=== PATIENT | female | born 1950 | race Caucasian/White ===

== ENCOUNTER 2024-02-19 20:06 | Emergency (ER) | payer MEDICARE, SELFPAY ==
[2024-02-19 20:10] VITALS: BP 150/83
[2024-02-19 22:23] VITALS: BP 165/77
--- NOTE | 2024-02-19 22:31 | ED.GENMED ---
History of Present Illness
General
Chief Complaint: Allergic Reaction
Source: patient
Time Seen by Provider: 02/19/24 22:10
Travel History
Have you had any contact with someone who has COVID-19?: No
Do you have any symptoms of coronavirus? Fever > 100 degrees, chills, cough, shortness of breath, sore throat, loss of taste or smell, muscle aches, or headache?: No
History of Present Illness
History of Present Illness:
74-year-old female presenting to the emergency department for evaluation after she was stung on the right hand by a bee around 7 PM this evening, has a history of allergy to bees so decided to use her EpiPen. She states that she has felt full body
paresthesias in the past with bee stings but did not feel the sensation today. She denies any shortness of breath or sensation of throat closing. She did take 2 Benadryl but notes that they were from 2 years ago. She notes continued
erythema and some discomfort over the right hand/forearm. No other concerns.
Past History
Past History
ED Past Medical History: Other (Pneumothorax)
ED Past Surgical History: Gynecological
Social History
Tobacco: Former smoker
Alcohol: Daily
Drug: None
Personal:
Living: with family
Review of Systems
Review of Systems
All Other Systems: ROS reviewed and negative except as documented in HPI and ROS
Phy Exam
Physical Exam
Physical Exam:
GENERAL: Alert , in no apparent distress
EYE: conjunctiva clear
Head: Normocephalic atraumatic
NECK: Supple,
ENT: mmm. No evidence for anaphylaxis
LUNGS: no acute respiratory distress
NEUROLOGICAL: Alert and oriented
SKIN: Warm and dry, erythema and edema of the dorsal right hand/forearm
MUSCULOSKELETAL: well perfused.
PSYCH: Normal and appropriate interaction.
Scores
Heart Failure Risk
Heart Failure Risk Score: Not Applicable
Heart Score for Chest Pain Patients
STEMI patient?: Not applicable
Withdrawal Assessment of Alcohol
Withdrawal Assessment Completed?: Not applicable
Course
Vital Signs
Initial and Last Documented VS:
Initial Vital Signs
Temp Pulse Resp BP Pulse Ox
98.1 F 77 20 150/83 99
02/19/24 20:10 02/19/24 20:10 02/19/24 20:10 02/19/24 20:10 02/19/24 20:10
Last Documented Vital Signs
Temp Pulse Resp BP Pulse Ox
98.1 F 65 18 165/77 98
02/19/24 20:10 02/19/24 22:23 02/19/24 22:23 02/19/24 22:23 02/19/24 22:23
MDM/Problems Addressed
Differential Diagnosis Includes:
Inflammatory reaction to bee sting, no current evidence for anaphylactic reaction, mild allergic reaction
MDM/Problems Addressed:
74-year-old female presenting the emergency department for evaluation following bee sting. There does appear to be an inflammatory reaction however no evidence for allergic reaction. Patient is nearly 3-1/2 hours since taking her EpiPen without
showing any evidence for anaphylaxis. I do think it is reasonable to continue management at home with Benadryl as needed. Motrin/ibuprofen or Tylenol for pain as needed. New prescription to be sent to patient's pharmacy for an EpiPen. Patient
stable for discharge home and aware of return precautions.
*Pulse Oximetry
Patient hypoxic: no
*Critical Care Note
Total Time (30-74mins, 75-104mins- exclusive of procedures): Not Applicable
ED Attending Note
-
Portions of this chart may have been created with voice recognition software.� Occasional wrong word or��sound alike� substitutions may have occurred due to the inherent limitations of voice recognition software.
Discharge Plan
Departure
Patient Disposition: Home (Routine Discharge)
Date of Disposition: 02/19/24
Time of Disposition: 22:31
Patient with high blood pressure during this ER visit?: Yes
Discharge Problem:
Bee sting
Instructions: Insect bites and stings
Prescriptions:
New
epinephrine [EpiPen] 0.3 mg/0.3 mL auto-injector
0.3 mg IM ONCE PRN (Reason: anaphylaxis) Qty: 2 0RF
No Action
aspirin 81 MG tablet,chewable
81 mg PO DAILY
Multiple Vitamins
PO DAILY
prednisone 50 MG tablet
50 mg PO DAILY Qty: 5 0RF
epinephrine [EpiPen] 0.3 MG/0.3/SYRINGE auto-injector
0.3 mg IM STAT! PRN (Reason: sob) Qty: 2 0RF
rabies vacc,human diploid (PF) [Imovax Rabies Vaccine (PF)] 1 ML recon soln
1 ml IM DAILY Qty: 3 0RF
Rx Instructions:
Administer on 03/27/2013(day 3), 03/31/2013(day 7) and 04/07/2013(day 14)
tramadol 50 MG tablet
50 mg PO Q6HPRN PRN (Reason: Pain) Qty: 15 0RF
methylprednisolone [Medrol (Héctor)] 4 MG tablets,dose pack
4 tab PO . DIRECT Qty: 1 0RF
epinephrine [EpiPen 2-Héctor] 0.3 MG/0.3 ML auto-injector
0.3 mg IJ ONCE Qty: 1 0RF
Referrals:
Arcelia Avila CRNP [Family Provider] -
Interventions
Interventions:
*Risk Screen - Suicide Last Done: 02/19/24 20:10
*General Assessment Last Done: 02/19/24 20:10
*Neglect/Abuse Screening Last Done: 02/19/24 20:10
*Nursing Disposition Last Done: 02/19/24 22:41
ED- Cardiac Assessment Last Done: 02/19/24 22:24
ED- Pulmonary Assessment Last Done: 02/19/24 22:24
ED-Skin Assessment Last Done: 02/19/24 22:24
Discharge Date and Time
Discharge Date/Time: 02/19/24 22:42
Print Language: MALAY
== END 2024-02-19 22:42 | disposition home or self-care (01) ==
LOC: EMR 20:06
PROVIDERS: EMERGENCY PHYSICIAN Student in an Organized Health Care Education/Training Program; FAMILY PHYSICIAN Nurse Practitioner
DX: R20.2 Paresthesia of skin (principal); T63.441A Toxic effect of venom of bees, accidental (unintentional), initial encounter; R03.0 Elevated blood-pressure reading, without diagnosis of hypertension; Z87.891 Personal history of nicotine dependence
CPT/HCPCS: 99282

== ENCOUNTER 2024-05-19 10:34 | Emergency (ER) | payer MEDICARE, SELFPAY ==
[2024-05-19 10:51] VITALS: BP 146/74
[2024-05-19] MEDS: DELTASONE 50 MG PO (11:29)
--- NOTE | 2024-05-19 12:56 | ED.GENMED ---
History of Present Illness
General
Chief Complaint: Allergic Reaction
Source: patient
Time Seen by Provider: 05/19/24 11:21
History of Present Illness
History of Present Illness:
74-year-old female with past medical history of a pneumothorax presenting to the emergency department for evaluation after she was stung by a bee on her left middle finger, has a history of anaphylactic reaction to bee stings so delivered herself an
EpiPen and took 2 Benadryl and Pepcid prior to coming to the ER. Patient notes no respiratory concerns. Her only symptom that she notes at this time is some pain and swelling to the left hand mainly concentrated around the middle finger. Patient
has no other concerns at this time.
Past History
Past History
ED Past Medical History: Other (Pneumothorax)
ED Past Surgical History: Gynecological
Social History
Tobacco: Former smoker
Alcohol: Daily
Drug: None
Personal:
Living: with family
Review of Systems
Review of Systems
All Other Systems: ROS reviewed and negative except as documented in HPI and ROS
Phy Exam
Physical Exam
Physical Exam:
GENERAL: Alert , in no apparent distress
EYE: conjunctiva clear
NECK: Supple
ENT: o/p clr, mmm.
CARDIAC: Regular rate and rhythm
LUNGS: Clear breath sounds bilaterally, no acute respiratory distress, no wheezes/rales/rhonchi
NEUROLOGICAL: Alert and oriented
SKIN: Warm and dry, left hand: Erythema concentrated around the palmar and dorsal aspect of the left hand and the left third MCP joint. No stinger retained. Patient still allows for full range of motion of all digits and wrist without any
difficulty. Extremities otherwise neurovascularly intact
MUSCULOSKELETAL: well perfused.
PSYCH: Normal and appropriate interaction.
Course
Orders/Labs/Results
Orders:
Orders
05/19/24 11:27
Prednisone [Deltasone] 50 mg PO NOW STA
05/19/24 11:28
Prednisone [Deltasone] 50 mg .ROUTE .STK-MED ONE
Vital Signs
Initial and Last Documented VS:
Initial Vital Signs
Temp Pulse Resp BP Pulse Ox
98.9 F 61 18 146/74 97
05/19/24 10:51 05/19/24 10:51 05/19/24 10:51 05/19/24 10:51 05/19/24 10:51
Last Documented Vital Signs
Temp Pulse Resp BP Pulse Ox
98.9 F 65 16 161/85 98
05/19/24 10:51 05/19/24 12:58 05/19/24 12:58 05/19/24 12:58 05/19/24 12:58
MDM/Problems Addressed
MDM/Problems Addressed:
74-year-old female presenting to the emergency department for evaluation after being stung by a bee at around 1015 this morning. Patient administered her own EpiPen around this time. At time of my evaluation patient is not exhibiting any signs of
anaphylaxis and is hemodynamically stable. Will give dose of prednisone here and monitor in the ER. Patient was also provided with an ice pack over her left hand to help with pain and swelling.
*Pulse Oximetry
Patient hypoxic: no
*Critical Care Note
Total Time (30-74mins, 75-104mins- exclusive of procedures): Not Applicable
Patient Management
Escalation/DeEscalation of care consider admission/obs:
On continuous reevaluations patient remains without any evidence for anaphylaxis. She feels comfortable being discharged home. Prescriptions for new EpiPen were sent to pharmacy in addition to an additional 4-day supply of prednisone. Patient is
aware of return precautions to the ER and otherwise stable for discharge home.
ED Attending Note
-
Portions of this chart may have been created with voice recognition software.� Occasional wrong word or��sound alike� substitutions may have occurred due to the inherent limitations of voice recognition software.
Discharge Plan
Departure
Patient Disposition: Home (Routine Discharge)
Date of Disposition: 05/19/24
Time of Disposition: 12:56
Patient with high blood pressure during this ER visit?: Yes
Discharge Problem:
Bee sting
Instructions: Insect Bites and Stings ED
Prescriptions:
New
prednisone 20 mg tablet
40 mg PO DAILY 4 Days Qty: 8 0RF
epinephrine [EpiPen 2-Héctor] 0.3 mg/0.3 mL auto-injector
0.3 mg IM ONCE PRN (Reason: anaphylaxis) Qty: 2 0RF
No Action
aspirin 81 MG tablet,chewable
81 mg PO DAILY
Multiple Vitamins
PO DAILY
prednisone 50 MG tablet
50 mg PO DAILY Qty: 5 0RF
epinephrine [EpiPen] 0.3 MG/0.3/SYRINGE auto-injector
0.3 mg IM STAT! PRN (Reason: sob) Qty: 2 0RF
rabies vacc,human diploid (PF) [Imovax Rabies Vaccine (PF)] 1 ML recon soln
1 ml IM DAILY Qty: 3 0RF
Rx Instructions:
Administer on 03/27/2013(day 3), 03/31/2013(day 7) and 04/07/2013(day 14)
tramadol 50 MG tablet
50 mg PO Q6HPRN PRN (Reason: Pain) Qty: 15 0RF
methylprednisolone [Medrol (Héctor)] 4 MG tablets,dose pack
4 tab PO . DIRECT Qty: 1 0RF
epinephrine [EpiPen 2-Héctor] 0.3 MG/0.3 ML auto-injector
0.3 mg IJ ONCE Qty: 1 0RF
epinephrine [EpiPen] 0.3 mg/0.3 mL auto-injector
0.3 mg IM ONCE PRN (Reason: anaphylaxis) Qty: 2 0RF
Referrals:
Savi Glover MD [Family Provider] -
Interventions
Interventions:
*Risk Screen - Suicide Last Done: 05/19/24 10:51
*General Assessment Last Done: 05/19/24 10:51
*Neglect/Abuse Screening Last Done: 05/19/24 10:51
ED- Fall Risk Assessment Last Done: 05/19/24 13:00
*ED COVID-19 Vaccine History Last Done: 05/19/24 13:00
*Nursing Disposition Last Done: 05/19/24 13:00
ED- Cardiac Assessment Last Done: 05/19/24 13:00
ED- Pulmonary Assessment Last Done: 05/19/24 13:00
ED-Skin Assessment Last Done: 05/19/24 13:00
Discharge Date and Time
Discharge Date/Time: 05/19/24 13:01
Print Language: LITHUANIAN
[2024-05-19 12:58] VITALS: BP 161/85
== END 2024-05-19 13:01 | disposition home or self-care (01) ==
LOC: EMR 10:34
PROVIDERS: EMERGENCY PHYSICIAN Emergency Medicine; FAMILY PHYSICIAN Internal Medicine
DX: T63.441A Toxic effect of venom of bees, accidental (unintentional), initial encounter (principal); R03.0 Elevated blood-pressure reading, without diagnosis of hypertension; Z87.891 Personal history of nicotine dependence
CPT/HCPCS: 99283

== ENCOUNTER → 2024-11-25 11:21 | Outpatient (REF) | payer MEDICARE, SELFPAY | LOC: WDC 11:21 | PROVIDERS: ATTENDING PHYSICIAN Hospitalist; FAMILY PHYSICIAN Nurse Practitioner | DX: Z12.31 Encounter for screening mammogram for malignant neoplasm of breast (principal) | CPT/HCPCS: 77063; 77067 ==

== ENCOUNTER 2025-02-21 22:56 | Emergency (ER) | payer MEDICARE, SELFPAY ==
[2025-02-21 22:57] VITALS: BP 173/81; BMI 20.3
--- NOTE | 2025-02-21 23:10 | ED.GENMED ---
History of Present Illness
General
Chief Complaint: Blood Pressure Problem
Source: patient
Exam Limitations: none
Time Seen by Provider: 02/21/25 23:05
Nursing documentation reviewed up to this point in time: agreed with
History of Present Illness
History of Present Illness:
This is a 75-year-old female with a past medical history of anxiety, migraines who presents to the emergency department today with concerns of high blood pressure. Patient reports that this evening, a few hours ago, she was doing work in her garden
when she suddenly got a frontal headache. Patient reports that the headache was so uncomfortable that she had to stop her gardening. She then started to feel flushed and she went inside. She has a home blood pressure cuff and pulse ox. She took her
blood pressure and reported that it was 200/100. She also checked her pulse ox and noted that her heart rate was in the 90s-100s. She reports that normally, her heart rate is in the 50s and normally her blood pressure is around 130-145/80. She does
not take anything for her blood pressure. She called her daughter who suggested calling EMS. She called EMS and upon arrival, her headache lessened in severity and her blood pressure came down to 170s systolically. Currently, she does note a
frontal headache but it is less severe than before. She denies any numbness or tingling, nausea, vomiting, visual changes, double vision, neck pain, dizziness. Of note, she reports that she had a appointment with her primary care provider 5 months
ago and they noted that her blood pressure in the office was 145/80 and he suggested starting blood pressure medication. Patient opted not to start medication at that time because she thought it was related to [place]coat high blood pressure.
Patient also reports that she has been dealing with a lot of stress recently in her personal life and feels that that is why it has been elevated. Patient has no other past medical history, she has no personal history of cardiac disease. Of note,
her mother of a hemorrhagic stroke related to hypertension. Patient currently denies chest pain, shortness of breath. She does not take any blood pressure.
Past History
Past History
ED Past Medical History: Other (Pneumothorax)
ED Past Surgical History: Gynecological
Social History
Tobacco: Former smoker
Alcohol: Daily
Drug: None
Personal:
Living: with family
Review of Systems
Review of Systems
All Other Systems: ROS reviewed and negative except as documented in HPI and ROS
Phy Exam
Physical Exam
Physical Exam:
General: Patient is well appearing and in no acute distress; non-toxic
Skin: Warm and dry, no rashes or lesions
Head: Normocephalic, atraumatic
Eyes: Sclera non-icteric. EOMs intact.
Cardiac: Regular rate and rhythm, no murmurs
Peripheral Vascular: No lower extremity swelling or edema
Pulm: Normal respiratory effort, no wheezes, rales, or rhonchi
Neuro: CN II-XII intact, no focal neurologic deficits.
Psychiatric: Appropriate mood and affect.
Course
Orders/Labs/Results
Orders:
Orders
02/21/25 23:26
Electrocardiogram (*1) Urgent
Reason for Study: Hypertension, Benign
EKG- Treatment ONCE
02/21/25 23:34
Complete Blood Count/With Diff Urgent
Comprehensive Metabolic Panel Urgent
02/22/25 00:00
CT Head W/o Iv Contrast Urgent
Reason For Exam: headache
02/22/25 00:53
Acetaminophen [Tylenol] 500 mg PO NOW STA
Abnormal Lab Results
02/21/25
23:34
MCH 31.3 H pg
(27.0-31.0)
MPV 10.9 H fL
(7.4-10.4)
BUN 23 H mg/dl
(7-17)
02/21/25 23:34
02/21/25 23:34
Vital Signs
Initial and Last Documented VS:
Initial Vital Signs
Temp Pulse Resp BP Pulse Ox
97.6 F 74 12 173/81 100
02/21/25 22:57 02/21/25 22:57 02/21/25 22:57 02/21/25 22:57 02/21/25 22:57
Last Documented Vital Signs
Temp Pulse Resp BP Pulse Ox
97.6 F 60 16 150/71 97
02/21/25 22:57 02/22/25 02:00 02/22/25 02:00 02/22/25 02:00 02/22/25 02:00
MDM/Problems Addressed
Differential Diagnosis Includes:
ddx include essential htn, white coat hypertension, tension headache, migraine headache, CVA/TIA,
MDM/Problems Addressed:
This is a 75-year-old female with a past medical history of anxiety, migraines who presents to the emergency department today with concerns of high blood pressure. Patient reports that this evening, a few hours ago, she was doing work in her garden
when she suddenly got a frontal headache. Patient reports that the headache was so uncomfortable that she had to stop her gardening. History as above. Currently she denies chest pain, shortness of breath, numbness or tingling, fainting spells,
dizziness. On physical exam she is well-appearing no acute distress she has no focal neurologic deficits. Considering persistent headache and severity along with recent hypertension, will check CAT scan of the head. Will check labs and ECG.
Patient does follow closely with a primary care provider.
CBC CMP ecg reassuring. CT scan negative. No signs of end organ damage. I did discuss with patient that it is important to treat blood pressure over time as high blood pressure can increase the risk of things like stroke and cardiac disease.
Patient expressed understanding. Did offer to start patient on blood pressure medication amlodipine however patient reports that she would rather talk to her primary care provider before starting medication. I think this is reasonable. Patient
states that she will call her primary care provider later this week. Patient stable for discharge
*Pulse Oximetry
Patient hypoxic: no
*EKG
Interpreted by ED Provider?: Yes
EKG Intrepretation Date: 02/22/25
Interpretation: normal
Comparison EKG: no changes
Heart Rate: 66
Rate: normal
Rhythm: sinus
Parmele: normal axis
QRS Pattern: normal QRS
*Critical Care Note
Total Time (30-74mins, 75-104mins- exclusive of procedures): Not Applicable
Data Reviewed
Review of Other/Old Records Reveals: Records (reviewed prior er physician documentation from 08/10/22 patient seen for chest pain and palpitations, was discharged after unremarkable work-up) and Discharge Summary (no discharge summary in [facility] to
review )
Source: patient and records
ED Attending Note
-
Portions of this chart may have been created with voice recognition software.� Occasional wrong word or��sound alike� substitutions may have occurred due to the inherent limitations of voice recognition software.
Discharge Plan
Departure
Patient Disposition: Home (Routine Discharge)
Date of Disposition: 02/22/25
Time of Disposition: 01:43
Patient with high blood pressure during this ER visit?: Yes
Condition: Good
Discharge Problem:
Hypertension, Acute tension headache
Instructions: Headaches in adults, BLOOD PRESSURE
Prescriptions:
No Action
aspirin 81 MG tablet,chewable
81 mg PO DAILY
Referrals:
Savi Glover MD [Family Provider] -
Activity Restrictions/Additional Instructions:
Please continue to monitor your symptoms.
Please keep a log of your blood pressures at home. Please call your primary care provider to set up a follow up appointment.
PLEASE RETURN TO THE ER SHOULD YOU DEVELOP AN ACUTE WORSENING OF YOUR SYMPTOMS, CHEST PAIN, SHORTNESS OF BREATH, NAUSEA OR VOMITING, FEVERS OR CHILLS, DIZZINESS, LIGHTHEADEDNESS, OR ANY OTHER SIGNS OR SYMPTOMS WORRISOME TO YOU.
Interventions
Interventions:
*Risk Screen - Suicide Last Done: 02/21/25 22:57
*General Assessment Last Done: 02/21/25 22:57
*Neglect/Abuse Screening Last Done: 02/21/25 22:57
*ED- Fall Risk Assessment Last Done: 02/21/25 22:57
*ED COVID-19 Vaccine History Last Done: 02/21/25 22:57
*Nursing Disposition Last Done: 02/22/25 02:13
ED- Cardiac Assessment Last Done: 02/21/25 23:47
ED- Neurological Assessment Last Done: 02/21/25 23:47
ED- Pulmonary Assessment Last Done: 02/21/25 23:47
Discharge Date and Time
Discharge Date/Time: 02/22/25 02:14
Print Language: COLOMBI[place]
[2025-02-21 23:43] LABS: % Basophils 0.7 % (0-2); % Eosinophils 2.4 % (0-6); % Immature Granulocytes 0.2 % (0-0.5); % Lymphocytes 38.4 % (20.5-51.1); % Monocytes 6.3 % (1.7-9.3); Absolute Eosinophils 0.1 10^3/uL (0-0.7); Absolute Lymphocytes 2.2 10^3/uL (1.2-3.4); Absolute Monocytes 0.4 10^3/uL (0.1-0.6); Hematocrit 38.7 % (37.0-47.0); Hemoglobin 13.2 g/dL (12.0-16.0); Mean Corp Hgb Conc. 34.1 g/dL (33.0-37.0); Mean Corpuscular Hgb 31.3 pg (27.0-31.0); Mean Corpuscular Volume 91.7 fL (81.0-99.0); Mean Platelet Volume 10.9 fL (7.4-10.4); Nucleated Red Blood Cells % 0 %; Platelet Count 165 10^3/uL (130-400); Red Blood Cell Count 4.22 10^6/uL (4.20-5.40); Red Cell Dist. Width 12.1 % (11.5-14.5); White Blood Cell Count 5.8 10^3/uL (4.8-10.8)
[2025-02-21 23:53] LABS: ALT (SGPT) 22 U/L (0-35); AST (SGOT) 27 U/L (14-36); Albumin 4.4 g/dl (3.5-5.0); Alkaline Phosphatase 56 U/L (38-126); Blood Urea Nitrogen 23 mg/dl (7-17); Calcium 9.4 mg/dl (8.4-10.2); Carbon Dioxide 30 mmol/L (22-30); Chloride 104 mmol/L (98-107); Estimated Creatinine Clearance 75 ml/min; Glucose 96 mg/dl (70-99); Potassium 3.6 mmol/L (3.5-5.1); Sodium 140 mmol/L (135-145); Total Bilirubin 0.2 mg/dl (0.2-1.3); Total Protein 6.6 g/dl (6.3-8.2); eGFR > 60.00
[2025-02-22] VITALS: BP 148/65
[2025-02-22] MEDS: TYLENOL 500 MG PO (00:59)
[2025-02-22 01:00] VITALS: BP 152/75
[2025-02-22 02:00] VITALS: BP 150/71
== END 2025-02-22 02:14 | disposition home or self-care (01) ==
LOC: EMR 22:56
PROVIDERS: Physician Assistant; EMERGENCY PHYSICIAN Emergency Medicine; FAMILY PHYSICIAN Internal Medicine
DX: G44.209 Tension-type headache, unspecified, not intractable (principal); I10 Essential (primary) hypertension; Z87.891 Personal history of nicotine dependence
CPT/HCPCS: 99284; 70450; 80053; 85025; 93005

== ENCOUNTER → 2025-02-24 16:16 | Outpatient (REF) | payer MEDICARE, SELFPAY | LOC: WDC 16:16 | PROVIDERS: ATTENDING PHYSICIAN Hospitalist | DX: R92.8 Other abnormal and inconclusive findings on diagnostic imaging of breast (principal); R92.30 Dense breasts, unspecified | CPT/HCPCS: 76641 ==

== ENCOUNTER 2025-04-16 06:24 | Day surgery (SDC) | payer MEDICARE, SELFPAY | END 2025-04-16 15:33 | disposition home or self-care (01) | LOC: GI 06:24 | PROVIDERS: ATTENDING PHYSICIAN Internal Medicine | DX: K57.30 Diverticulosis of large intestine without perforation or abscess without bleeding (principal); K62.1 Rectal polyp; K56.2 Volvulus; Q43.8 Other specified congenital malformations of intestine; Z80.0 Family history of malignant neoplasm of digestive organs | CPT/HCPCS: 45380; 88305 ==